=== PATIENT | male | born 1950 | race Caucasian/White ===

== ENCOUNTER → 2024-05-24 09:57 | Outpatient (REF) | payer MEDICARE, OTHER, SELFPAY ==
[2024-05-24 10:51] LABS: % Basophils 1.1 % (0-2); % Eosinophils 2.6 % (0-6); % Immature Granulocytes 0.2 % (0-0.5); % Lymphocytes 22.5 % (20.5-51.1); % Monocytes 12.8 % (1.7-9.3); % Neutrophils 60.8 % (42.2-75.2); Absolute Basophils 0.1 10^3/uL (0-0.2); Absolute Eosinophils 0.1 10^3/uL (0-0.7); Absolute Monocytes 0.6 10^3/uL (0.1-0.6); Absolute Neutrophils 2.8 10^3/uL (1.4-6.5); Hematocrit 44.4 % (39.0-52.0); Hemoglobin 15.1 g/dL (13.0-18.0); Mean Corpuscular Hgb 31.9 pg (27.0-31.0); Mean Corpuscular Volume 93.7 fL (80.0-94.0); Mean Platelet Volume 9.5 fL (7.4-10.4); Nucleated Red Blood Cells % 0 % (-); Platelet Count 186 10^3/uL (130-400); Red Blood Cell Count 4.74 10^6/uL (4.70-6.10); Red Cell Dist. Width 13.2 % (11.5-14.5); White Blood Cell Count 4.6 10^3/uL (4.8-10.8)
[2024-05-24 11:24] LABS: ALT (SGPT) 17 U/L (0-50); AST (SGOT) 28 U/L (17-59); Albumin 4.5 g/dl (3.5-5.0); Alkaline Phosphatase 52 U/L (38-126); Blood Urea Nitrogen 18 mg/dl (9-20); Calcium 9.9 mg/dl (8.4-10.2); Carbon Dioxide 29 mmol/L (22-30); Chloride 103 mmol/L (98-107); Glucose 94 mg/dl (70-99); HDL Cholesterol 91 mg/dl; LDL Cholesterol, Calculated 164 mg/dl; Potassium 5.3 mmol/L (3.5-5.1); Sodium 139 mmol/L (135-145); Total Bilirubin 1.2 mg/dl (0.2-1.3); Total Cholesterol 266 mg/dl (50-199); Total Protein 6.9 g/dl (6.3-8.2); Triglyceride 56 mg/dl (10-149); Very Low Density Lipoprotein 11 mg/dl (0-30); eGFR > 60.00
[2024-05-24 11:51] LABS: PSA, Total - Screen 4.01 ng/ml (0.0-4.0)
[2024-05-24 12:16] LABS: Urine Albumin Negative (Neg - Trace); Urine Bilirubin Negative (Negative); Urine Character Clear (Clear); Urine Color Yellow; Urine Glucose Negative (Negative); Urine Ketone Negative (Negative); Urine Leukocyte Negative (Negative); Urine Nitrite Negative (Negative); Urine Occult Blood Negative (Negative); Urine Urobilinogen Negative (Neg - 1+)
== END ==
LOC: REG 09:57
PROVIDERS: ATTENDING PHYSICIAN Internal Medicine Geriatric Medicine
DX: Z00.00 Encounter for general adult medical examination without abnormal findings (principal); E78.2 Mixed hyperlipidemia; E55.9 Vitamin D deficiency, unspecified; K90.0 Celiac disease; R07.9 Chest pain, unspecified; M25.461 Effusion, right knee; R00.2 Palpitations; M54.50 Low back pain, unspecified; J06.9 Acute upper respiratory infection, unspecified; N52.9 Male erectile dysfunction, unspecified; Z13.31 Encounter for screening for depression; Z12.5 Encounter for screening for malignant neoplasm of prostate
CPT/HCPCS: 36415; 80053; 80061; 81003; 82306; 85025; G0103

== ENCOUNTER → 2024-06-04 14:37 | Outpatient (REF) | payer MEDICARE, OTHER, SELFPAY | LOC: RCS 14:37 | PROVIDERS: ATTENDING PHYSICIAN Internal Medicine Geriatric Medicine | DX: Z00.00 Encounter for general adult medical examination without abnormal findings (principal); E78.2 Mixed hyperlipidemia; E55.9 Vitamin D deficiency, unspecified; K90.0 Celiac disease; R07.9 Chest pain, unspecified; M25.461 Effusion, right knee; R00.2 Palpitations; M54.50 Low back pain, unspecified; J06.9 Acute upper respiratory infection, unspecified; N52.9 Male erectile dysfunction, unspecified; Z13.31 Encounter for screening for depression; R07.89 Other chest pain | CPT/HCPCS: 75571 ==

== ENCOUNTER → 2024-06-12 10:23 | Outpatient (REF) | payer MEDICARE, OTHER, SELFPAY | LOC: RCS 10:23 | PROVIDERS: ATTENDING PHYSICIAN Internal Medicine Geriatric Medicine | DX: Z00.00 Encounter for general adult medical examination without abnormal findings (principal); E78.2 Mixed hyperlipidemia; E55.9 Vitamin D deficiency, unspecified; K90.0 Celiac disease; R07.9 Chest pain, unspecified; M25.461 Effusion, right knee; R00.2 Palpitations; M54.50 Low back pain, unspecified; J06.9 Acute upper respiratory infection, unspecified; N52.9 Male erectile dysfunction, unspecified; Z13.31 Encounter for screening for depression; R07.89 Other chest pain | CPT/HCPCS: 93017; 93350 ==

== ENCOUNTER → 2024-09-04 10:31 | Outpatient (REF) | payer MEDICARE, OTHER, SELFPAY ==
[2024-09-04 11:36] LABS: HDL Cholesterol 90 mg/dl; Triglyceride 49 mg/dl (10-149); Very Low Density Lipoprotein 9 mg/dl (0-30)
[2024-09-04 11:46] LABS: LDL Cholesterol, Calculated 85 mg/dl; Total Cholesterol 184 mg/dl (50-199)
[2024-09-06 05:34] LABS: PSA Total 2.3 ng/mL (0.0-4.0)
== END ==
LOC: REG 10:31
PROVIDERS: ATTENDING PHYSICIAN Internal Medicine Geriatric Medicine
DX: R97.20 Elevated prostate specific antigen [PSA] (principal); E78.5 Hyperlipidemia, unspecified
CPT/HCPCS: 36415; 80061; 84153; 84154

== ENCOUNTER → 2025-05-27 09:23 | Outpatient (REF) | payer MEDICARE, OTHER, SELFPAY ==
[2025-05-27 10:23] LABS: Hematocrit 46.8 % (39.0-52.0); Hemoglobin 15.6 g/dL (13.0-18.0); Mean Corp Hgb Conc. 33.3 g/dL (33.0-37.0); Mean Corpuscular Volume 95.7 fL (80.0-94.0); Nucleated Red Blood Cells % 0 % (-); Platelet Count 168 10^3/uL (130-400); Red Cell Dist. Width 13.1 % (11.5-14.5)
[2025-05-27 10:56] LABS: ALT (SGPT) 19 U/L (0-50); AST (SGOT) 26 U/L (17-59); Albumin 4.7 g/dl (3.5-5.0); Alkaline Phosphatase 43 U/L (38-126); Blood Urea Nitrogen 22 mg/dl (9-20); Calcium 9.8 mg/dl (8.4-10.2); Carbon Dioxide 31 mmol/L (22-30); Chloride 107 mmol/L (98-107); Glucose 92 mg/dl (70-99); HDL Cholesterol 101 mg/dl; LDL Cholesterol, Calculated 92 mg/dl; Potassium 5.4 mmol/L (3.5-5.1); Sodium 142 mmol/L (135-145); Total Protein 7.3 g/dl (6.3-8.2); Very Low Density Lipoprotein 9 mg/dl (0-30); eGFR > 60.00
[2025-05-27 11:03] LABS: Urine Character Clear (Clear)
[2025-05-27 11:12] LABS: Vitamin D, 25-OH*** 60.5 ng/mL (30-80)
[2025-05-27 11:25] LABS: PSA, Total - Screen 4.10 ng/ml (0.0-4.0)
== END ==
LOC: REG 09:23
PROVIDERS: ATTENDING PHYSICIAN Internal Medicine Geriatric Medicine
DX: Z00.00 Encounter for general adult medical examination without abnormal findings (principal); E78.2 Mixed hyperlipidemia; E55.9 Vitamin D deficiency, unspecified; K90.0 Celiac disease; M25.461 Effusion, right knee; R00.2 Palpitations; M54.50 Low back pain, unspecified; N52.9 Male erectile dysfunction, unspecified; Z13.31 Encounter for screening for depression; R07.89 Other chest pain; Z12.5 Encounter for screening for malignant neoplasm of prostate
CPT/HCPCS: 36415; 80053; 80061; 81003; 82306; 85025; G0103

== ENCOUNTER → 2025-06-11 12:31 | Outpatient (REF) | payer MEDICARE, OTHER, SELFPAY ==
[2025-06-11 14:16] LABS: Blood Urea Nitrogen 20 mg/dl (9-20); Calcium 9.6 mg/dl (8.4-10.2); Carbon Dioxide 30 mmol/L (22-30); Chloride 104 mmol/L (98-107); Glucose 100 mg/dl (70-99); Potassium 5.2 mmol/L (3.5-5.1); Sodium 137 mmol/L (135-145); eGFR > 60.00
[2025-06-11 14:22] LABS: PSA, Total - Screen 3.85 ng/ml (0.0-4.0)
== END ==
LOC: REG 12:31
PROVIDERS: ATTENDING PHYSICIAN Internal Medicine Geriatric Medicine
DX: R97.20 Elevated prostate specific antigen [PSA] (principal); E87.5 Hyperkalemia
CPT/HCPCS: 36415; 80048; G0103